=== PATIENT | female | born 1970 | race Caucasian/White ===

== ENCOUNTER → 2022-06-30 13:38 | Outpatient (BNVA) | payer MEDICAID, SELFPAY | PROVIDERS: Visit Provider Podiatrist Foot & Ankle Surgery | DX: E11.42 Type 2 diabetes mellitus with diabetic polyneuropathy (principal); M21.621 Bunionette of right foot; M21.622 Bunionette of left foot; M21.41 Flat foot [pes planus] (acquired), right foot; M21.42 Flat foot [pes planus] (acquired), left foot; Z79.4 Long term (current) use of insulin; Z79.84 Long term (current) use of oral hypoglycemic drugs | CPT/HCPCS: 99203; 99204 ==

== ENCOUNTER → 2025-05-30 07:36 | Outpatient (BNVA) | payer MEDICAID, SELFPAY | PROVIDERS: PCP Family Medicine; Visit Provider Podiatrist Foot & Ankle Surgery | DX: E11.42 Type 2 diabetes mellitus with diabetic polyneuropathy (principal); M21.621 Bunionette of right foot; M21.622 Bunionette of left foot; M21.41 Flat foot [pes planus] (acquired), right foot; M21.42 Flat foot [pes planus] (acquired), left foot; L60.0 Ingrowing nail; Z79.4 Long term (current) use of insulin | CPT/HCPCS: 99213 ==

== ENCOUNTER → 2025-06-26 08:15 | Outpatient (BNVA) | payer MEDICAID, SELFPAY | PROVIDERS: PCP Family Medicine; Referring Provider Family Medicine; Visit Provider Internal Medicine Rheumatology | DX: M33.10 Other dermatomyositis, organ involvement unspecified (principal); M19.90 Unspecified osteoarthritis, unspecified site; Z79.899 Other long term (current) drug therapy; Z71.85 Encounter for immunization safety counseling | CPT/HCPCS: 36415; 80076; 82085; 82306; 82550; 82565; 83520; 85025; 85651; 86140; 86200; 86431; 86480; 86704; 86803; 87340; 99205 ==

== ENCOUNTER → 2025-07-22 10:38 | Outpatient (BNVA) | payer MEDICAID, SELFPAY | PROVIDERS: PCP Family Medicine; Visit Provider Internal Medicine | DX: E11.9 Type 2 diabetes mellitus without complications (principal); E78.2 Mixed hyperlipidemia; E16.0 Drug-induced hypoglycemia without coma; T38.3X5A Adverse effect of insulin and oral hypoglycemic [antidiabetic] drugs, initial encounter; X58.XXXA Exposure to other specified factors, initial encounter; Z79.4 Long term (current) use of insulin | CPT/HCPCS: 99214 ==

== ENCOUNTER → 2025-07-25 08:53 | Outpatient (BNVA) | payer MEDICAID, SELFPAY | PROVIDERS: PCP Family Medicine; Visit Provider Podiatrist Foot & Ankle Surgery | DX: E11.42 Type 2 diabetes mellitus with diabetic polyneuropathy (principal); L60.3 Nail dystrophy; M21.621 Bunionette of right foot; M21.622 Bunionette of left foot; M21.41 Flat foot [pes planus] (acquired), right foot; M21.42 Flat foot [pes planus] (acquired), left foot; I10 Essential (primary) hypertension; Z79.4 Long term (current) use of insulin | CPT/HCPCS: 99213 ==

== ENCOUNTER 2025-08-04 01:37 | Inpatient (IN) | payer MEDICAID, SELFPAY ==
[2025-08-04] VITALS (9 sets, daily range): BP systolic 125–170; BP diastolic 75–95; PULSE 85–99; RESP 16–22; TEMP 35.8–37.1; O2SAT 94–96; BMI 36.7
--- OUTSIDE RECORDS SUMMARY | 2025-08-04 01:39 | XMS_ITS | Clinical Summary ---
Author Organization [facility] Address [address] Attn: Epic Prelude ADT JUSTIN URIARTE [id number] Care Team Providers Care Waterworks Operator Name Role Phone Unavailable Primary Care Provider Unavailabl e Allergies Active Allergy Reactions Criticality Noted Date Comments Aspirin Other (See Comments) 09/25/2018 patient states she has stomach bleeding with aspirin Penicillins Nausea and Vomiting,Abdominal Pain Medium 07/27/2018 Tetanus Toxoid Other (See Comments) 09/25/2018 fever Medications hydroCHLOROthia zide 25 mg tablet Take 1 tablet by MOUTH every day 30 Tablet 5 01/22/2019 Active metFORMIN (GLUCOPHAGE) 500 mg tablet Take 1 tablet by MOUTH 2 times every day 60 Tablet 5 01/22/2019 Active lovastatin (MEVACOR) 40 mg tablet Take 1 tablet by MOUTH every day with the evening meal 30 Tablet 11 01/22/2019 Active Encounters Date Type Department Care Team Description 05/28/2025 External Device Data [facility] Provider, Abstract 05/08/2025 External Device Data [facility] Provider, Abstract 05/07/2025 External Device Data [facility] Provider, Abstract from Last 3 Months Social History Tobacco Use Types Packs/Day Years Used Date Smoking Tobacco: Never Assessed Comments Unknown Sex and Gender Information Value Date Recorded Sex Assigned at Not on file 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
--- NOTE | 2025-08-04 01:53 | USCV_ITS ---
Cherie Pena Age: 55 Gender: F : 1970 Exam Date: 08/04/2025 07:16 Ordering Phys: Elaine Pierce MD Technologist: Cedrick Campos Exam Location: [facility] [place] Indication: chest pain BP: 125 / 79 HR: 80 Rhythm: Sinus Technical Quality: Adequate MEASUREMENTS (Male / Female) Normal Values 2D ECHO LV Diastolic Diameter PLAX 4.8 cm 4.2 - 5.9 / 3.9 - 5.3 cm IVS Diastolic Thickness 1.0 cm 0.6 - 1.0 / 0.6 - 0.9 cm IVS Systolic Thickness 1.6 cm LVPW Diastolic Thickness 0.9 cm 0.6 - 1.0 / 0.6 - 0.9 cm LVPW Systolic Thickness 1.5 cm LVOT Diameter 2.1 cm LV Ejection Fraction 2D Teich 84.7 % LV Ejection Fraction MOD 4C 68.8 % LV Ejection Fraction MOD 2C 63.7 % LV Ejection Fraction 2C AL 62.0 % LA Diameter 3.6 cm RA Systolic Volume 4C AL 22.3 ml RA Systolic Volume 4C MOD 21.6 ml LA Sys Volume AL 44.5 cm cubed LA Sys Volume Index AL 19.9 cm cubed/m squared Aorta at Sinotubular Diameter 2.7 cm IVC Diameter 1.7 cm M-MODE LA Ao Ratio MM 1.4 AV Cusp Separation MM 2.0 cm DOPPLER AV Peak Velocity 164.3 cm/s LVOT Peak Velocity 101.0 cm/s AV Area Cont Eq vti 2.4 cm squared AV Area Cont Eq pk 2.1 cm squared MV Peak Velocity 75.0 cm/s MV Area PHT 5.3 cm squared Mitral E to A Ratio 1.1 TR Peak Velocity 322.0 cm/s TR Peak Gradient 41.5 mmHg TR Mean Velocity 277.0 cm/s TR Mean Gradient 31.8 mmHg TR Velocity Time Integral 79.3 cm PV Peak Velocity 112.7 cm/s RV Ejection Time 0.2 s FINDINGS Left Ventricle Left ventricle is normal in size. LV systolic function is normal with EF of 60-65%. No regional wall motion abnormalities are seen. Right Ventricle Right Atrium Normal right atrial size. Left Atrium Normal left atrial size. IA Septum Grossly normal Mitral Valve Structurally normal mitral valve. Trace mitral regurgitation Aortic Valve Structurally normal aortic valve. No significant stenosis. Trace aortic regurgitation. Tricuspid Valve Insufficient TR jet to calculate RVSP Pulmonic Valve Trace pulmonic regurgitation. Pericardium Normal Aorta Normal in size IVC Appears to be normal CONCLUSIONS LV systolic function is normal with EF of 60-65% Trace mitral regurgitation Trace aortic regurgitation. Trace pulmonic regurgitation. No comparison studies are available. Davin Boss MD (Electronically Signed) Final Date: 04 August 2025 10:31 S
--- NOTE | 2025-08-04 01:54 | XRR_ITS ---
PROCEDURE INFORMATION: Exam: XR Chest Exam date and time: 08/04/2025 2:13 AM Age: 55 years old Clinical indication: Chest pressure; C/O chest pain starting sat morning early; Chest pain on deep breathing sometimes; TECHNIQUE: Imaging protocol: Radiologic exam of the chest. Views: 1 view. COMPARISON: No relevant prior studies available. FINDINGS: Lungs: Unremarkable. No consolidation. Pleural spaces: Unremarkable. No pleural effusion. No pneumothorax. Heart/Mediastinum: Unremarkable. No cardiomegaly. Bones/joints: Unremarkable. XR/XR chest 1V portable [id number] IMPRESSION: No acute findings.
--- NOTE | 2025-08-04 01:57 | PM.HP ---
Providers/Chief Complaint Admitting Physician: Elaine Pierce MD--patient just arrived from [facility] after 12 midnight, seen and evaluated Primary Care Provider: Carlos Manuel Granado MD Chief Complaint: Chest Pain History of Present Illness Cherie Pena is a 55 year old female with no past no history of coronary artery disease but does have history of diabetes type 2 on medications, presented to [facility] with chest pain that woke her up yesterday at 6 AM that is 20 hours ago. When patient arrived to [facility] emergency room it was 13 hours after she had had the episode of chest pain that woke her up enzymes were done and they were all negative for the baseline troponin and the 2-hour troponin. CTA over at the [facility] was negative for PE. Chest x-ray and EKG were unremarkable for any ischemia. Ultrasound of the gallbladder where unremarkable for any obstructive natures that may be a reason for chest pain the ED for this patient in [facility] was worried that patient had been given GI cocktails and nitro without any relief patient could not take aspirin because patient is allergic to aspirin. Patient did not receive any aspirin. Patient feel chest pressure but feel pain when she takes a deep breath. Patient had arrived of seen and evaluated patient patient does have more atypical chest pain than anything And I am really running troponin obtaining chest x-ray and EKG ordered echocardiogram. This is the weekend if everything checks out it depends on the attending physician for this patient to follow through with outpatient stress test. Unless something is concerning patient should not be sitting in the hospital for the next 48 hours to get a stress test. I will leave this for a decision by the oncoming attending for the day. Patient at this time is currently chest pain-free. Because patient did not get any aspirin I will substitute by giving Plavix at this moment. But not loading. Just 75 mg of Plavix Review of Systems Narrative: System review upon 10 organ review we are unremarkable except for cardiovascular with atypical chest pain Medications/Allergies Home Medications ?Medication ?Instructions ?Recorded ?Confirmed ?Last Taken ?Type atorvastatin 40 mg tablet ea PO 06/30/22 07/25/25 Unknown History fluoxetine 20 mg capsule ea PO 06/30/22 07/25/25 Unknown History pen needle, diabetic 31 gauge x #50 ea 06/30/22 07/25/25 Unknown History 01/06 (TechLITE Pen Needle) triamcinolone acetonide 0.1 % 1 applic topical TID 12/23/23 07/25/25 Unknown History topical cream Diabetic shoes #1 ea 09/25/24 07/25/25 Unknown Rx amitriptyline 10 mg tablet mg PO 01/24/25 07/25/25 Unknown History amlodipine 10 mg tablet mg PO 01/24/25 07/25/25 Unknown History blood-glucose sensor (Dexcom G6 #1 ea 01/24/25 07/25/25 Unknown History Sensor device) famotidine 40 mg tablet mg PO 01/24/25 07/25/25 Unknown History lisinopril 20 mg tablet mg PO 01/24/25 07/25/25 Unknown History mycophenolate mofetil 500 mg tablet PO 01/24/25 07/25/25 Unknown History Held on 06/26/25. Instructions: Doctor's Order prednisone 10 mg tablet mg PO 01/24/25 07/25/25 Unknown History dulaglutide 4.5 mg/0.5 mL 4.5 mg (0.5 mL) SUBCUT Q7D #6 mL 05/17/25 07/25/25 Unknown Rx subcutaneous pen injector (Trulicity) insulin regular hum U-500 conc 500 See Rx Instructions .Route 06/17/25 07/25/25 Unknown Rx unit/mL(3 mL) subcut pen (Humulin .COMPLEX #18 mL R U-500 (Conc) Insulin Kwikpen) folic acid 1 mg tablet 1 mg PO DAILY #90 tabs 06/26/25 07/25/25 Unknown Rx hydroxychloroquine 200 mg tablet 200 mg PO BID #60 tabs 06/26/25 07/25/25 Unknown Rx leflunomide 20 mg tablet 20 mg PO DAILY #30 tabs 06/28/25 07/25/25 Unknown Rx mupirocin 2 % topical ointment 1 applic topical BID 2 weeks #22 07/25/25 07/25/25 Unknown Rx grams Allergies Allergy/AdvReac Type Severity Reaction Status Date / Time aspirin Allergy ADR-Abdominal Verified 07/25/25 08:58 Pain NSAIDS (Non-Steroidal Allergy Unknown Verified 08/04/25 02:19 Anti-Inflamma Penicillins Allergy ADR-Diarrhe Verified 07/25/25 08:58 a strawberry Allergy ALGY-Hives Verified 08/04/25 02:19 tetanus toxoid, adsorbed Allergy ALGY-Fever Verified 08/04/25 02:19 PFSH Acute PFSH: Medical History Immunization counseling High risk medication use Inflammatory arthritis Amyopathic dermatomyositis SLE (systemic lupus erythematosus) Polyarthralgia History of hypertension Insomnia Seasonal allergies Surgical History History of hysterectomy with bilateral oophorectomy History of tubal ligation History of tonsillectomy and adenoidectomy Family History Other Cancer Diabetes Hypertension Lung cancer Lung disease Lupus (systemic lupus erythematosus) Migraines Rheumatoid arthritis Stroke Denies family history of Chronic kidney disease (CKD) Breast cancer Social History Smoking and tobacco/nicotine status: former use of tobacco/nicotine Vitals/I&O/Wt Last Vital Signs O2 Del Method Room Air 08/04/25 01:47 Physical Exam Narrative: Generally patient looks well in bed lying supine with no complaints chest pain-free HEENT normocephalic atraumatic neck neck is supple cardiovascular heart rate is regular lungs are pretty much clear abdomen soft nontender nondistended unremarkable extremities are intact no edema has good pulses neurology has no focality lab studies lab studies reviewed and noted. A&P Assessment and plan 1. Chest pain: 2. Inflammatory arthritis: 3. Hyperlipemia, mixed: 4. Diabetes type 2, uncontrolled: Plan: #1 Chest pain - Rule out MA - Character of the chest pain is mixed but more so atypical - Run-through troponin patient had 2 sets negative already from the transferring hospital - EKG and chest x-ray had been negative - Echocardiogram had been ordered follow through with the result of echocardiogram prior to discharge - If all is negative patient can safely get outpatient stress test - Patient is not on Plavix at home patient is being given Plavix here by me because patient cannot take aspirin because of aspirin allergy #2 Chronic medical illness such as inflammatory arthritis/diabetes type 2/hyperlipidemia mixed-be continued on patient home medications #3 GI and DVT prophylaxis in place PDMP PDMP Reviewed: Last Reviewed 08/04/25 02:20 by Elaine Pierce MD Attestations Medical Necessity Statement*: Patient is under observation for 23-hour stay regarding chest pains Coding Level of Care Code Acute Code for Chg Fwd Diagnoses Chest pain R07.9 Inflammatory arthritis M13.80 Hyperlipemia, mixed E78.2 Diabetes type 2, uncontrolled Time Spent (min) 60
[2025-08-04] MEDS: heparin 5,000 unit/mL INJ 1 mL 5000 UNIT SUBCUT ×3 (02:54→16:52)
[2025-08-04 03:06] LABS: Hematocrit 37.4 % (36-47); Hemoglobin 11.70 g/dL (11.27-16.99); Mean Corpuscular HGB Conc 31.3 g/dL (30-55); Mean Corpuscular Hemoglobin 26.5 pg (27-33); Mean Corpuscular Volume 84.6 fl (85-98); Nucleated Red Blood Cells % 0 %; Platelet Count 278 10^3/cmm (157-399); Red Blood Count 4.42 10^6/uL (3.85-5.65); White Blood Count 5.21 10^3/uL (3.29-11.43)
[2025-08-04 03:23] LABS: Alanine Aminotransferase 13 U/L (0-33); Albumin Level 3.9 g/dL (3.5-5.2); Alkaline Phosphatase 112 U/L (35-105); Anion Gap 14.9 (5-19); Aspartate Amino Transferase 11 U/L (0-32); Blood Urea Nitrogen 8 mg/dL (6-20); Calcium 10.3 mg/dL (8.5-10.5); Carbon Dioxide 24 mmol/L (22-29); Chloride 104 mmol/L (98-107); Creatinine Clr Calc Pharmacy 192.8172; Globulin 2.7 g/dL (1.3-4.6); Glucose 164 mg/dL (65-115); Magnesium 1.8 mg/dL (1.7-2.3); Osmolality Calculated 290 mOsm/kg (285-295); Potassium 3.9 mmol/L (3.5-5.1); Sodium 139 mmol/L (136-145); Total Protein 6.6 g/dL (6.6-8.7)
[2025-08-04 03:46] LABS: Troponin(5th) Baseline 8 ng/L (0-10)
--- NOTE | 2025-08-04 03:54 | ECG_ITS ---
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
[2025-08-04 05:50] LABS: Troponin 5 2HR 10.07 ng/L (0-10); Troponin 5 2HR Delta 2.07 ABS# (0-10)
--- NOTE | 2025-08-04 07:54 | ECG_ITS ---
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1970 Requested By: Elaine Monte Order Number: [id number] Reading MD: PHOENIX LUONG Measurements Intervals [place] Rate: 96 P: 34 [place]: 164 QRS: -8 QRSD: 97 T: 59 QT: 349 QTc: 442 Interpretive Statements SINUS RHYTHM INFERIOR MYOCARDIAL INFARCTION , OF INDETERMINATE AGE [40+ ms Q WAVE AND/OR ST/T ABNORMALITY IN II/aVF] Compared to ECG 08/04/2025 02:28:37 Ventricular premature complex(es) no longer present Myocardial infarct finding still present Electronically Signed On 08-04-2025 23:27:38 CDT by PHOENIX LUONG [email or web address] [id number]
--- NOTE | 2025-08-04 08:40 | ECG_ITS ---
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 Interpretive Statements LEXISCAN: Procedure: At the baseline, the blood pressure was 131/90 mmHg with a heart rate of 98 bpm. The electrocardiogram showed normal sinus rhythm, with normal ST and T's. The Lexiscan was infused over a period of 20 seconds. A total of 0.4 mg of Lexiscan was infused. The stress phase was continued for a total of 5 minutes. Heart rate was at the end of stress phase was 104 bpm and a blood pressure of 144/87 mmHg. The EKG at the peak infusion revealed normal sinus rhythm, occasional PVCs with no significant ST-T wave changes. Sestamibi was injected 20 seconds after the Lexiscan infusion. Blood pressure at the end of recovery phase was 115/87 mmHg with a heart rate of 104 bpm. Conclusion: 1. Normal EKG response to Lexiscan infusion 2. No Lexiscan induced chest pain or cardiac arrhythmia. 3. Normal blood pressure and heart rate response. 4. Sestamibi/sestamibi perfusion scan pending; see separate report. Electronically Signed On 08-10-2025 19:59:55 CDT by Davin Boss M.D. [id number]
[2025-08-04 09:05] LABS: Troponin 5 6HR 7.31 ng/L (0-10)
[2025-08-04 09:06] LABS: Troponin 5 6HR Delta -0.69 ng/L (0-12)
--- NOTE | 2025-08-04 15:20 | P.PN_ITS ---
Subjective 2 Subjective: She was transferred from [facility] for evaluation of chest pain. She has substernal discomfort when she takes a deep breath. She denies any dyspnea. She CT chest at OSH was negative for PE or pneumonia. Her initial troponin was normal and trended up by 2. Medications: Reviewed: Yes Vitals/I&O/Wt Last Vital Signs Temp 97.9 F 08/04/25 12:00 Pulse 93 08/04/25 12:00 Resp 22 H 08/04/25 12:00 BP 131/78 08/04/25 12:00 Pulse Ox 96 08/04/25 12:00 O2 Del Method Room Air 08/04/25 04:00 08/04/25 08/04/25 08/04/25 06:59 14:59 22:59 Intake Total 1695 / 1695 Balance 1695 / 1695 Weight last 48 hrs Weight 103.2 kg Weight 103.2 kg Physical Exam 2 Narrative: GEN: Alert, no acute distress HEENT: Normocephalic, atraumatic, PERRLA Neck: Supple Respiratory: No respiratory distress, clear to auscultation bilaterally. Abdomen: Soft, nontender, nondistended, normoactive bowel sounds Neurologic: Alert, oriented x 3, no focal deficits Extremity: Warm, no edema Skin: No rash or lesion Data 08/04/25 02:44 08/04/25 02:44 A&P Assessment and plan 1. Chest pain: Echo and stress test ordered Nitroglycerin as needed She is allergic to aspirin so is on Plavix Telemetry monitoring 2. Diabetes type 2, uncontrolled: She sees endocrinology She takes U-500 100 mg 3 times daily with meals Started her on lispro 100 mg 3 times daily with meals and high-dose sliding scale Monitor glucose and adjust as needed 3. Hypertension: Lisinopril 4. Hyperlipemia, mixed: Atorvastatin 5. SLE (systemic lupus erythematosus): She is on hydroxychloroquine 6. Inflammatory arthritis: Also on leflunomide, methotrexate Plan: VTE prophylaxis: Heparin SQ Full code Protonix PDMP PDMP Reviewed: Not Reviewed Attestations 2 Medical Necessity Statement*: She is continue hospitalization for telemetry monitoring and stress test Coding Level of Care Code Acute Code for [facility] Diagnoses Chest pain R07.9 Diabetes type 2, uncontrolled Hypertension I10 Hyperlipemia, mixed E78.2 SLE (systemic lupus erythematosus) M32.9 Inflammatory arthritis M13.80
[2025-08-04 16:10] LABS: Estmated Average Glucose 163; Hemoglobin A1C 7.3 % (4.0-6.0)
--- NOTE | 2025-08-04 16:45 | PC.NURSE ---
Patient refuses to have her blood sugar checked with Accucheck. Patient has dexcom she insists on using. BS at this time is 108.
--- NOTE | 2025-08-04 22:37 | PC.NURSE ---
BG at 156 using the patient dexcom at approx 2030, patient still refusing to have staff check using the accucheck machine.
[2025-08-05] VITALS (8 sets, daily range): BP systolic 102–157; BP diastolic 65–95; PULSE 66–101; RESP 17–24; TEMP 35.9–36.7; O2SAT 93–97
[2025-08-05] MEDS: heparin 5,000 unit/mL INJ 1 mL 5000 UNIT SUBCUT ×3 (02:27→16:38)
[2025-08-05 05:56] LABS: Anion Gap 15.1 (5-19); Blood Urea Nitrogen 9 mg/dL (6-20); Calcium 9.5 mg/dL (8.5-10.5); Carbon Dioxide 23 mmol/L (22-29); Chloride 108 mmol/L (98-107); Glucose 180 mg/dL (65-115); Osmolality Calculated 297 mOsm/kg (285-295); Potassium 4.1 mmol/L (3.5-5.1); Sodium 142 mmol/L (136-145)
--- NOTE | 2025-08-05 06:00 | PC.NURSE ---
dexcom reading of 188 this AM
[2025-08-05 06:01] LABS: Creatinine Clr Calc Pharmacy 193.7203
[2025-08-05 06:06] LABS: Cholesterol 119 mg/dL (0-200); HDL Cholesterol 29 mg/dL (60-100); Triglycerides 223 mg/dL (0-150)
--- NOTE | 2025-08-05 07:14 | PC.NURSE ---
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 No distress observed.
--- NOTE | 2025-08-05 08:40 | NMCV_ITS ---
NM marzena perf SPECT r/s* [id number] Cherie Pena Age: 55 Gender: F : 1970 Exam Date: 08/05/2025 06:57 Ordering Phys: Alice Valdovinos MD Technologist: MEDINA Cobos Exam Location: [facility] Indications: cp STRESS TEST Please see separate stress test report in [facility] for full findings IMAGE PROTOCOL Rest/Stress 1 Lexiscan Day Radiopharmaceutical Dose (mCi) Administration Site Administered by Rest: Tc-99m 10.7 IV Pam Jean, FISHERIES INSPECTOR Sestamibi Stress:Tc-99m 33 IV Pam Lightgle, FISHERIES INSPECTOR Sestamibi Rest: 05-Aug-2025 60 Discovery 630 Stress: 05-Aug-2025 30 Discovery 630 0.4mg Lexiscan. Images obtained in supine and prone position. SPECT RESULTS Technical Quality: Good Raw Data Analysis: Normal Image Corrections: No attenuation or motion correction applied Summed Stress Score: 4 Summed Rest Score: 5 Summed Difference Score: 0 PERFUSION FINDINGS Small to medium sized area of fixed perfusion defect noted in the inferolateral wall. This improves on prone imaging. Attenuation can not be ruled out. FUNCTIONAL RESULTS (calculated via Gated SPECT) Stress Image LV EF (%): 75 Stress EDV (mL):89 TID: 0.92 Stress ESV (mL):22 FUNCTIONAL FINDINGS: There is normal left ventricular systolic function. IMPRESSIONS 1. Small to medium sized area of prior infarct in left circumflex artery territory. Attenuation artifact can not be ruled out. No evidence of ischemia 2. LV systolic function is normal Davin Boss MD (Electronically Signed) Final Date: 05 August 2025 11:46 S
[2025-08-05 10:50] LABS: Iron 28 ug/dL (37-145); Thyroid Stimulating Hormone 0.62 uIU/mL (0.27-4.20); Total Iron Binding Capacity 217 mcg/dl; Unsaturated Iron Binding 189 ug/dL (112-347); Vitamin B12 924 pg/mL (232-1245)
--- NOTE | 2025-08-05 13:18 | P.CONIM_ITS ---
<Statement entered by Davin Boss M.D - 08/08/25 09:27> Patient was cared for in conjunction with an advanced practice practitioner. I reviewed the chart and all pertinent data including imaging, telemetry, and laboratory results. I discussed the patient in detail with the advanced practice practitioner. Please see their note for agreed upon plan of care and results for the patient. Patient has atypical chest pain on my evaluation. Stress test not showing significant ischemia. Echo shows normal LV systolic function and no significant troponin elevation. Chest pain likely secondary to costochondritis. We will continue medical therapy Thank you for involving us with care of this patient. Please call with questions. Providers/Reason For Consult 2 Consulting Physician/Specialty*: Dr Boss, interventional cardiology Reason for Consult*: chest pain Requesting Physician: Carlos Cordova MD Attending Physician: Carlos Cordova MD Primary Care Provider: Carlos Manuel Granado MD History of Present Illness History of Present Illness Cherie Pena is a 55 year old female with past medical history of diabetes who presented to the emergency room in [facility] with chest pain. Per review of medical records troponin series there was negative, CTA of the chest ruled out PE. She was brought to [facility] for further evaluation. She states no previous cardiac workup, has never had chest pain before this episode on Tuesday. The pain woke her up from sleep at 0600, initially was rated 5/10, but continued increasing in intensity until it was about 9/10, which is when she went to the hospital. Character of the pain is described as pressure like someone sitting on her chest initially, but after several hours also added sharp pain in the left breast like someone was trying to cut off my boob . She also notes vomiting when the pain became more intense. She had right arm numbness and difficulty moving the arm, which has since resolved. Significant fatigue present that day but is improving. She is unable to lay flat to breathe, but has not had any symptoms of volume overload. No previous history of COPD, but notes bronchitis. Troponin series here: 8->10->7. Echocardiogram revealed LVEF 60-65%, no regional wall motion abnormalites. 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 EKG shows Q waves in the inferior leads. She has not had any chest pain today. Review of Systems 2 Const: Denies: fever(s), chills, change in weight, fatigue or diaphoresis Eyes: Denies: change in vision ENMT: Denies: epistaxis Card: Denies: chest pain, palpitations, irregular heart rhythm, edema, syncope, pre-syncope, dyspnea on exertion, orthopnea or leg pain with exertion Resp: Denies: dyspnea, productive cough or wheezing GI: Denies: nausea, vomiting, hematemesis, hematochezia or melena : Denies: hematuria Musc: Denies: extremity swelling Viraj/Lymph: Denies: easy bruising or easy bleeding Medications/Allergies Home Medications ?Medication ?Instructions ?Recorded ?Confirmed ?Last Taken ?Type atorvastatin 40 mg tablet 40 ea PO BEDTIME 06/30/2208/03/25 History fluoxetine 20 mg capsule 20 ea PO DAILY 06/30/2207/2408/03/25 History pen needle, diabetic 31 gauge x #50 ea 06/30/22 Unknown History 01/06 (TechLITE Pen Needle) Diabetic shoes #1 ea 09/25/24 08/04/25 Unkn own Rx amitriptyline 10 mg tablet 10 - 20 mg PO BEDTIME 01/2408/04/25 08/03/25 History 10 mg amlodipine 10 mg tablet 10 mg PO DAILY 01/24/2507/2408/03/25 History blood-glucose sensor (Dexcom G6 #1 ea 01/24/25 5 Unknown History Sensor device) famotidine 40 mg tablet 40 mg PO BEDTIME 01/24/2508/03/25 History lisinopril 20 mg tablet 20 mg PO DAILY 01/24/2507/2408/03/25 History dulaglutide 4.5 mg/0.5 mL 4.5 mg (0.5 mL) SUBCUT Q7D # 6 mL 05/17/25 08/04/25 07/22/25 08:00 Rx subcutaneous pen injector (Trulicity) insulin regular hum U-500 conc 500 See Rx Instructions .Route 06/17/25 08/04/25 08/04/25 Rx unit/mL(3 mL) subcut pen (Humulin .COMPLEX #18 mL R U-500 (Conc) Insulin Kwikpen) folic acid 1 mg tablet 1 mg PO DAILY #90 tabs 06/2608/04/25 08/03/25 Rx hydroxychloroquine 200 mg tablet 200 mg PO BID #60 tab s 06/26/25 08/04/25 08/03/25 Rx leflunomide 20 mg tablet 20 mg PO DAILY #30 tabs 03/1708/04/25 08/03/25 Rx methotrexate sodium 25 mg/mL See Rx Instructions .Rout e .COMPLEX 08/04/25 08/04/25 07/22/25 History injection solution Allergies Allergy/AdvReac Type Severity Reaction Status Date / Time aspirin Allergy ADR-Abdominal Verified 07/25/25 08:58 Pain NSAIDS (Non-Steroidal Allergy Unknown Verified 08/04/25 02:19 Anti-Inflamma Penicillins Allergy ADR-Diarrhe Verified 07/25/25 08:58 a strawberry Allergy ALGY-Hives Verified 08/04/25 02:19 tetanus toxoid, adsorbed Allergy ALGY-Fever Verified 08/04/25 02:19 Current Medications Generic Name Dose Route Start Last Admin Trade Name Tyrelq PRN Reason Stop Dose Admin Amlodipine Besylate 10 mg 08/05/25 05:00 08/05/25 04:41 Amlodipine 10 Mg Tablet PO 10 mg DAILY MANA Administration Atorvastatin Calcium 40 mg 08/04/25 21:00 08/04/25 20:47 Atorvastatin 40 Mg Tablet PO 40 mg BEDTIME MANA Administration Clopidogrel Bisulfate 75 mg 08/04/25 05:00 08/05/25 04:41 Clopidogrel 75 Mg Tablet PO 75 mg DAILY MANA Administration Docusate Sodium 100 mg 08/04/25 05:00 08/05/25 04:41 Docusate Sodium 100 Mg Capsule PO Not Given BID MANA Famotidine 40 mg 08/04/25 21:00 08/04/25 20:47 Famotidine 20 Mg Tablet PO 40 mg BEDTIME MANA Administration Fluoxetine HCl 20 mg 08/05/25 05:00 08/05/25 04:41 Fluoxetine 20 Mg Capsule PO 20 mg DAILY MANA Administration Folic Acid 1 mg 08/05/25 05:00 08/05/25 04:41 Folic Acid 1 Mg Tablet PO 1 mg DAILY MANA Administration Heparin Sodium (Porcine) 5,000 unit 08/04/25 02:00 08/05/25 11:20 Heparin 5,000 Unit/Ml Inj 1 Ml SUBCUT 5,000 unit Q8H MANA Administration Hydroxychloroquine Sulfate 200 mg 08/04/25 17:00 08/05/25 04:41 Hydroxychloroquine 200 Mg Tablet PO 200 mg BID MANA Administration Insulin Human Lispro 0 unit 08/04/25 18:00 08/05/25 07:17 Insulin Lispro 100 Unit/1 Ml SUBCUT Not Given WM&BEDTIME MANA Protocol Insulin Human Lispro 100 unit 08/04/25 17:00 08/05/25 11:25 Insulin Lispro 100 Unit/1 Ml SUBCUT Not Given TIDAC [facility] Lisinopril 20 mg 08/05/25 05:00 08/05/25 04:41 Lisinopril 20 Mg Tablet PO 20 mg DAILY MANA Administration Pantoprazole Sodium 40 mg 08/04/25 05:00 08/05/25 04:[address] 40 Mg Tablet PO 40 mg DAILY MANA Administration Senna 17.2 mg 08/04/25 21:00 08/04/25 20:47 Sennosides 8.6 Mg Tablet PO Not Given BEDTIME MANA PFSH Acute 2 PFSH: Medical History Immunization counseling High risk medication use Inflammatory arthritis Amyopathic dermatomyositis SLE (systemic lupus erythematosus) Polyarthralgia History of hypertension Insomnia Seasonal allergies Surgical History History of hysterectomy with bilateral oophorectomy History of tubal ligation History of tonsillectomy and adenoidectomy Family History Other Cancer Diabetes Hypertension Lung cancer Lung disease Lupus (systemic lupus erythematosus) Migraines Rheumatoid arthritis Stroke Denies family history of Chronic kidney disease (CKD) Breast cancer Social History Smoking and tobacco/nicotine status: former use of tobacco/nicotine Vitals/I&O/Wt Last Vital Signs Temp 98.0 F 08/05/25 11:47 Pulse 88 08/05/25 11:47 Resp 18 08/05/25 11:47 BP 139/84 08/05/25 11:47 Pulse Ox 96 08/05/25 11:47 O2 Del Method Room Air 08/05/25 11:47 08/04/25 08/05/25 08/05/25 22:59 06:59 14:59 Intake Total 360 / 3055 1000 / 3055 1480 / 1480 Balance 360 / 3055 1000 / 3055 1480 / 1480 Weight last 48 hrs Weight 229 lb 8.019 oz Weight 227 lb 8.273 oz Weight 227 lb 8.273 oz Physical Exam 2 Const: COMMON NORMALS: no acute distress and patient oriented x3 GENERAL APPEARANCE: cooperative and comfortable ORIENTATION/CONSCIOUSNESS: Yes awake, Yes oriented to person, Yes oriented to place and Yes oriented to time Chest: COMMONS NORMALS: normal inspection of the chest and normal palpation of entire chest wall CHEST: Yes Symmetrical chest wall rise Resp: COMMON NORMALS: normal respiratory effort, No retractions, No use of accessory muscles and clear to auscultation bilaterally EFFORT & INSPECTION: Yes symmetric chest movement AUSCULTATION: clear to auscultation bilaterally Cardio: COMMON NORMALS: regular rate, regular rhythm, S1 normal heart sound present, S2 normal heart sound present, No gallops present (Cardio), No clicks present (Cardio), No murmurs present (Cardio) and No rub (Cardio) RATE: r egular rate RHYTHM: regular rhythm HEART SOUNDS: S1 normal heart sound present and S2 normal heart sound present PERIPHERAL PULSES: radial pulses present Extremity: COMMON NORMALS: no pedal edema Neuro: COMMON NORMALS: patient oriented x3 and moves all extremities S ENSORIUM/ORIENTATION: Yes oriented to person, Yes oriented to place and Yes oriented to time Data 08/04/25 02:44 08/05/25 04:52 A&P Assessment and plan 1. Chest pain: 2. Hypertension: 3. Diabetes type 2, uncontrolled: Plan: She has some features of typical chest pain but no elevation in cardiac markers. She will be evaluated later this evening by Dr Boss, since she is chest pain free now, he will discuss further plan with her. PDMP PDMP Reviewed: Not Reviewed Coding Level of Care Code Acute Code for Chg Fwd Diagnoses Chest pain R07.9 Hypertension I10 Diabetes type 2, uncontrolled
--- NOTE | 2025-08-05 13:59 | P.PN_ITS ---
Subjective 2 Subjective: Hospital course, labs appreciated. Patient comfortably in bed. Denies any further chest pain. States chest pain is only happening when she is taking a deep breath. Mostly is retrosternal. Denies any nausea, vomiting, headache or dyspnea on exertion. Medications: Reviewed: Yes Vitals/I&O/Wt Last Vital Signs Temp 98.0 F 08/05/25 11:47 Pulse 88 08/05/25 11:47 Resp 18 08/05/25 11:47 BP 139/84 08/05/25 11:47 Pulse Ox 96 08/05/25 11:47 O2 Del Method Room Air 08/05/25 11:47 08/04/25 08/05/25 08/05/25 22:59 06:59 14:59 Intake Total / 2054 1000 / 3055 1480 / 1480 Balance 360 / 2054 1000 / 3055 1480 / 1480 Weight last 48 hrs Weight 104.1 kg Weight 103.2 kg Weight 103.2 kg Physical Exam 2 Narrative: GEN: Alert, no acute distress HEENT: Normocephalic, atraumatic, PERRLA Neck: Supple Respiratory: No respiratory distress, clear to auscultation bilaterally. Abdomen: Soft, nontender, nondistended, normoactive bowel sounds Neurologic: Alert, oriented x 3, no focal deficits Extremity: Warm, no edema Skin: No rash or lesion Data 08/04/25 02:44 08/05/25 04:52 A&P Assessment and plan 1. Chest pain: Echo and stress test ordered Nitroglycerin as needed She is allergic to aspirin so is on Plavix Telemetry monitoring 2. Diabetes type 2, uncontrolled: She sees endocrinology She takes U-500 100 mg 3 times daily with meals Started her on lispro 100 mg 3 times daily with meals and high-dose sliding scale Monitor glucose and adjust as needed 3. Hypertension: Lisinopril 4. Hyperlipemia, mixed: Atorvastatin 5. SLE (systemic lupus erythematosus): She is on hydroxychloroquine 6. Inflammatory arthritis: Also on leflunomide, methotrexate Plan: Plan for today: Appreciate Lexiscan stress test result. Possible old infarct. Attenuation defect versus possible ischemia. Will consult cardiology for further recommendations. For now continue with Plavix, statin. Goal blood pressure less than 140/90 mmHg. Continue with home amlodipine, lisinopril. Will monitor heart rate. Can add low-dose beta-alina. Check A1c, lipid panel. Carb consistent cardiac diet Protonix for PUD prophylaxis Heparin for DVT prophylaxis PDMP PDMP Reviewed: Not Reviewed Attestations 2 Medical Necessity Statement*: Requires further hospitalization further evaluation and management of chest pain while CAD/ACS is ruled out Diagnoses Chest pain R07.9 Diabetes type 2, uncontrolled Hypertension I10 Hyperlipemia, mixed E78.2 SLE (systemic lupus erythematosus) M32.9 Inflammatory arthritis M13.80
[2025-08-06] VITALS: BP 139/79; PULSE 90; RESP 17; O2SAT 94
[2025-08-06] MEDS: heparin 5,000 unit/mL INJ 1 mL 5000 UNIT SUBCUT (02:18)
[2025-08-06 04:00] VITALS: BP 127/84; PULSE 88; RESP 16; TEMP 36.9; O2SAT 93
[2025-08-06 04:28] LABS: Hematocrit 37.4 % (36-47); Hemoglobin 11.40 g/dL (11.27-16.99); Mean Corpuscular HGB Conc 30.5 g/dL (30-55); Mean Corpuscular Hemoglobin 26.4 pg (27-33); Mean Corpuscular Volume 86.6 fl (85-98); Nucleated Red Blood Cells % 0 %; Platelet Count 251 10^3/cmm (157-399); Red Blood Count 4.32 10^6/uL (3.85-5.65); White Blood Count 4.70 10^3/uL (3.29-11.43)
[2025-08-06 04:57] LABS: Alanine Aminotransferase 14 U/L (0-33); Albumin Level 3.5 g/dL (3.5-5.2); Alkaline Phosphatase 96 U/L (35-105); Anion Gap 14.6 (5-19); Aspartate Amino Transferase 15 U/L (0-32); Blood Urea Nitrogen 8 mg/dL (6-20); Calcium 10.0 mg/dL (8.5-10.5); Carbon Dioxide 24 mmol/L (22-29); Chloride 106 mmol/L (98-107); Creatinine Clr Calc Pharmacy 193.7203; Globulin 3.3 g/dL (1.3-4.6); Glucose 94 mg/dL (65-115); Osmolality Calculated 290 mOsm/kg (285-295); Potassium 3.6 mmol/L (3.5-5.1); Sodium 141 mmol/L (136-145); Total Protein 6.8 g/dL (6.6-8.7)
[2025-08-06 06:00] VITALS: PULSE 81
[2025-08-06 08:00] VITALS: BP 135/88; PULSE 96; RESP 22; TEMP 36.9; O2SAT 97
--- NOTE | 2025-08-06 08:39 | PM.DCS ---
Discharge Providers Date of Admission: 08/04/25 01:37 Date of Discharge: August 06, 2025 Attending Provider at Admission: Elaine Pierce MD Attending Provider at Discharge: Carlos Cordova MD Primary Care Provider: Carlos Manuel Granado MD Diagnoses at Discharge Discharge Diagnosis 1. Chest pain: 2. Diabetes type 2, uncontrolled: 3. Hypertension: 4. Hyperlipemia, mixed: 5. SLE (systemic lupus erythematosus): 6. Inflammatory arthritis: Reason for Visit Reason for Visit: Chest Pain Brief History: Per HPI: Cherie Pena is a 55 year old female with no past no history of coronary artery disease but does have history of diabetes type 2 on medications, presented to [facility] with chest pain that woke her up yesterday at 6 AM that is 20 hours ago. When patient arrived to [facility] emergency room it was 13 hours after she had had the episode of chest pain that woke her up enzymes were done and they were all negative for the baseline troponin and the 2-hour troponin. CTA over at the [facility] was negative for PE. Chest x-ray and EKG were unremarkable for any ischemia. Ultrasound of the gallbladder where unremarkable for any obstructive natures that may be a reason for chest pain the ED for this patient in [facility] was worried that patient had been given GI cocktails and nitro without any relief patient could not take aspirin because patient is allergic to aspirin. Patient did not receive any aspirin. Patient feel chest pressure but feel pain when she takes a deep breath. Patient had arrived of seen and evaluated patient patient does have more atypical chest pain than anything And I am really running troponin obtaining chest x-ray and EKG ordered echocardiogram. This is the weekend if everything checks out it depends on the attending physician for this patient to follow through with outpatient stress test. Unless something is concerning patient should not be sitting in the hospital for the next 48 hours to get a stress test. I will leave this for a decision by the oncoming attending for the day. Patient at this time is currently chest pain-free. Because patient did not get any aspirin I will substitute by giving Plavix at this moment. But not loading. Just 75 mg of Plavix Hospital Course Hospital Course Patient was admitted to the hospital further evaluation and management of chest pain. She underwent cardiac stress test which revealed a small to medium sized prior infarct in LCx territory with no ischemia. Echocardiogram showed normal EF without regional wall motion abnormality. She was seen by cardiology team who recommended medical treatment. She has been discharged to hemodynamically stable condition with oral Plavix daily. Patient is allergic to aspirin hence Plavix was chosen. Physical Exam Narrative: GEN: Alert, no acute distress HEENT: Normocephalic, atraumatic, PERRLA Neck: Supple Respiratory: No respiratory distress, clear to auscultation bilaterally. Abdomen: Soft, nontender, nondistended, normoactive bowel sounds Neurologic: Alert, oriented x 3, no focal deficits Extremity: Warm, no edema Skin: No rash or lesion Discharge Data Studies Completed and Pending Completed Studies During Hospitalization Category Date Time Status XR chest 1V portable [id number] Routine Exams 08/04/25 01:54 Completed NM marzena perf SPECT r/s* [id number] Routine Nuc Med 08/05/25 08:40 Completed CV. echo complete* [id number] Routine Ultrasound 08/04/25 01:53 Completed Pending at discharge Category Date Time Status Cardiac Stress Test MIBI [Sestamibi Stress Test Request Exams 08/04/25 08:40 Ordered ] Routine Radiology Impressions Chest X-Ray 08/04/25 01:54 IMPRESSION: No acute findings. Lexiscan stress test: PERFUSION FINDINGS Small to medium sized area of fixed perfusion defect noted in the inferolateral wall. This improves on prone imaging. Attenuation can not be ruled out. FUNCTIONAL RESULTS (calculated via Gated SPECT) Stress Image LV EF (%): 75 Stress EDV (mL):89 TID: 0.92 Stress ESV (mL):22 FUNCTIONAL FINDINGS: There is normal left ventricular systolic function. IMPRESSIONS 1. Small to medium sized area of prior infarct in left circumflex artery territory. Attenuation artifact can not be ruled out. No evidence of ischemia 2. LV systolic function is normal Davin Boss MD (Electronically Signed) Final Date: 05 August 2025 Echocardiogram: CONCLUSIONS LV systolic function is normal with EF of 60-65% Trace mitral regurgitation Trace aortic regurgitation. Trace pulmonic regurgitation. No comparison studies are available. Davin Boss MD (Electronically Signed) Final Date: 04 August 2025 10:31 Laboratory Results WBC 4.70 10^3/uL (3.29-11.43) 08/06/25 03:59 RBC 4.32 10^6/uL (3.85-5.65) 08/06/25 03:59 Hgb 11.40 g/dL (11.27-16.99) 08/06/25 03:59 Hct 37.4 % (36-47) 08/06/25 03:59 MCV 86.6 fl (85-98) 08/06/25 03:59 MCH 26.4 pg (27-33) L 08/06/25 03:59 MCHC 30.5 g/dL (30-55) 08/06/25 03:59 RDW 14.7 % (12.1-15.1) 08/06/25 03:59 Plt Count 251 10^3/cmm (157-399) 08/06/25 03:59 MPV 9.9 fL (7.4-10.4) 08/06/25 03:59 Neut % (Auto) 67.6 % 08/06/25 03:59 Lymph % (Auto) 14.7 % 08/06/25 03:59 Holmes % (Auto) 9.6 % 08/06/25 03:59 Eos % (Auto) 6.8 % 08/06/25 03:59 Baso % (Auto) 1.1 % 08/06/25 03:59 Neut # (Auto) 3.18 10^3/uL (1.8-7.7) 08/06/25 03:59 Lymph # (Auto) 0.7 10^3/uL (0.8-4.8) L 08/06/25 03:59 Holmes # (Auto) 0.5 10^3/uL (0.2-0.9) 08/06/25 03:59 Eos # (Auto) 0.3 10^3/uL (0.0-0.8) 08/06/25 03:59 Baso # (Auto) 0.1 10^3/uL (0.0-0.1) 08/06/25 03:59 Nucleated RBC % (auto) 0 % 08/06/25 03:59 Nucleated RBCs # 0.0 /100WBC 08/06/25 03:59 Sodium 141 mmol/L (136-145) 08/06/25 03:59 Potassium 3.6 mmol/L (3.5-5.1) 08/06/25 03:59 Chloride 106 mmol/L (98-107) 08/06/25 03:59 Carbon Dioxide 24 mmol/L (22-29) 08/06/25 03:59 Anion Gap 14.6 (5-19) 08/06/25 03:59 BUN 8 mg/dL (6-20) 08/06/25 03:59 Creatinine 0.4 mg/dL (0.5-0.9) L 08/06/25 03:59 GFR Calculation 165.7 mL/min (90-130) H 08/06/25 03:59 Glucose 94 mg/dL (65-115) 08/06/25 03:59 Estimat Average Glucose 163 08/04/25 02:44 Hemoglobin A1c 7.3 % (4.0-6.0) H 08/04/25 02:44 Calculated Osmolality 290 mOsm/kg (285-295) 08/06/25 03:59 Calcium 10.0 mg/dL (8.5-10.5) 08/06/25 03:59 Phosphorus 2.8 mg/dL (2.5-4.5) 08/04/25 02:44 Magnesium 1.8 mg/dL (1.7-2.3) 08/04/25 02:44 Iron 28 ug/dL (37-145) L 08/05/25 04:52 TIBC 217 mcg/dl 08/05/25 04:52 % Saturation 12.9 % (20-50) L 08/05/25 04:52 Unsat Iron Binding 189 ug/dL (112-347) 08/05/25 04:52 Total Bilirubin 0.3 mg/dL (0.15-1.2) 08/06/25 03:59 AST 15 U/L (0-32) 08/06/25 03:59 ALT 14 U/L (0-33) 08/06/25 03:59 Alkaline Phosphatase 96 U/L (35-105) 08/06/25 03:59 Troponin T Baseline 8 ng/L (0-10) 08/04/25 02:44 Troponin T 120 Minute 10.07 ng/L (0-10) H 08/04/25 04:41 Delta Troponin T 2.07 ABS# (0-10) 08/04/25 04:41 Troponin T Hi Sens 6Hr 7.31 ng/L (0-10) 08/04/25 08:34 Troponin T Hi Sens 6Hr Delta -0.69 ng/L (0-12) L 08/04/25 08:34 Total Protein 6.8 g/dL (6.6-8.7) 08/06/25 03:59 Albumin 3.5 g/dL (3.5-5.2) 08/06/25 03:59 Globulin 3.3 g/dL (1.3-4.6) 08/06/25 03:59 Triglycerides 223 mg/dL (0-150) H 08/05/25 04:52 Cholesterol 119 mg/dL (0-200) 08/05/25 04:52 LDL Cholesterol, Calc 45 mg/dL (50-129) L 08/05/25 04:52 HDL Cholesterol 29 mg/dL (60-100) L 08/05/25 04:52 LDL/HDL Ratio 1.55 RATIO (0.00-3.22) 08/05/25 04:52 Cholesterol/HDL Ratio 4.10 mg/dL (0.0-4.40) 08/05/25 04:52 Vitamin B12 924 pg/mL (232-1245) 08/05/25 04:52 TSH 0.62 uIU/mL (0.27-4.20) 08/05/25 04:52 Vitals Last Vital Signs Temp 98.4 F 08/06/25 08:00 Pulse 96 08/06/25 08:00 Resp 22 H 08/06/25 08:00 BP 135/88 08/06/25 08:00 Pulse Ox 97 08/06/25 08:00 O2 Del Method Room Air 08/06/25 00:00 Discharge Plan Discharge Patient Disposition: Home Condition: Stable Prescriptions: New clopidogrel 75 mg Tablet 75 mg PO DAILY Qty: 30 0RF Continued (DME) Diabetic shoes See Rx Instructions .ROUTE .MEDSUPPLY Qty: 1 0RF Rx Instructions: With 3 pairs of inserts to the shoe guys (DME) Dexcom G6 Sensor Device See Rx Instructions .ROUTE .MEDSUPPLY Qty: 1 Rx Instructions: As directed amitriptyline 10 mg tablet 10 - 20 mg PO BEDTIME amlodipine 10 mg tablet 10 mg PO DAILY famotidine 40 mg tablet 40 mg PO BEDTIME lisinopril 20 mg tablet 20 mg PO DAILY (DME) pen needle, diabetic [TechLITE Pen Needle] 31 gauge x 3/16 needle See Rx Instructions .ROUTE .MEDSUPPLY Qty: 50 Rx Instructions: As directed fluoxetine 20 mg capsule 20 ea PO DAILY atorvastatin 40 mg tablet 40 ea PO BEDTIME hydroxychloroquine 200 mg tablet 200 mg PO BID Qty: 60 3RF folic acid 1 mg tablet 1 mg PO DAILY Qty: 90 3RF Trulicity 4.5 mg/0.5 mL pen injector 4.5 mg SUBCUT Q7D Qty: 6 1RF Humulin R U-500 (Conc) Kwikpen 500 unit/mL (3 mL) insulin pen See Rx Instructions .ROUTE .COMPLEX Qty: 18 1RF Dose Instruction: INJECT 150 UNITS SUBCUTANEOUSLY 3 TIMES DAILY. START AT 130 UNITS BEFORE MEALS Rx Instructions: INJECT 150 UNITS SUBCUTANEOUSLY 3 TIMES DAILY. START AT 130 UNITS BEFORE MEALS leflunomide 20 mg tablet 20 mg PO DAILY Qty: 30 3RF methotrexate sodium 25 mg/mL solution See Rx Instructions .ROUTE .COMPLEX Rx Instructions: 25 mg subcutaneously once very 7 days Discharge Order = DC NOW: Discharge Order (Routine); Ordered 08/06/25 Ordered By: Carlos Cordova Referrals: Carlos Manuel Granado MD [Primary Care Provider, [facility]] - 08/12/25 11:20 am Discharge Diet: Usual diet, Cardiac and Diabetic Discharge Activity: Resume usual activity and Increase activity as tolerated Patient Instructions: Type 2 Diabetes, Clopidogrel (By mouth) (Plavix), Hypertension (DC), Hyperlipidemia (DC), Chest Pain Stoplight, Opioid Safety, Patient Portal & Lynsey Instructions Discharge Attestations Time Spent in Discharge Care*: greater than 30 min Quality Metrics Clinical Quality Measures [ No reported AMI, CVA or VTE this stay] Coding Level of Care Code Acute Code for Chg Fwd Diagnoses Chest pain R07.9 Diabetes type 2, uncontrolled Hypertension I10 Hyperlipemia, mixed E78.2 SLE (systemic lupus erythematosus) M32.9 Inflammatory arthritis M19.90
--- NOTE | 2025-08-06 09:37 | P.PN_ITS ---
<Statement entered by Luis Antonio Shin 08/10/25 14:00> Patient was cared for in conjunction with an advanced practice practitioner.? I reviewed the chart and all pertinent data including imaging, telemetry, and laboratory results.? I discussed the patient in detail with the advanced practice practitioner.? Please see their note for progress note, testing results and agreed upon plan of care for the patient. Subjective 2 Subjective: Chest pain has not recurred, agree with discharge home. Vitals/I&O/Wt Last Vital Signs Temp 98.4 F 08/06/25 08:00 Pulse 96 08/06/25 08:00 Resp 22 H 08/06/25 08:00 BP 135/88 08/06/25 08:00 Pulse Ox 97 08/06/25 08:00 O2 Del Method Room Air 08/06/25 00:00 08/05/25 08/06/25 08/06/25 22:59 06:59 14:59 Intake Total 960 / 2920 480 / 2920 480 / 480 Balance 960 / 2920 480 / 2920 480 / 480 Weight last 48 hrs Weight 227 lb 14.4 oz Weight 229 lb 8.019 oz Physical Exam 2 Const: COMMON NORMALS: no acute distress and patient oriented x3 GENERAL APPEARANCE: cooperative and comfortable ORIENTATION/CONSCIOUSNESS: Yes awake, Yes oriented to person, Yes oriented to place and Yes oriented to time Chest: COMMONS NORMALS: normal inspection of the chest and normal palpation of entire chest wall CHEST: Yes Symmetrical chest wall rise Resp: COMMON NORMALS: normal respiratory effort, No retractions, No use of accessory muscles and clear to auscultation bilaterally EFFORT & INSPECTION: Yes symmetric chest movement AUSCULTATION: clear to auscultation bilaterally Cardio: COMMON NORMALS: regular rate, regular rhythm, S1 normal heart sound present, S2 normal heart sound present, No gallops present (Cardio), No clicks present (Cardio), No murmurs present (Cardio) and No rub (Cardio) RATE: r egular rate RHYTHM: regular rhythm HEART SOUNDS: S1 normal heart sound present and S2 normal heart sound present PERIPHERAL PULSES: radial pulses present Extremity: COMMON NORMALS: no pedal edema Neuro: COMMON NORMALS: patient oriented x3 and moves all extremities S ENSORIUM/ORIENTATION: Yes oriented to person, Yes oriented to place and Yes oriented to time Data 08/06/25 03:59 08/06/25 03:59 A&P Assessment and plan 1. Chest pain: 2. Hypertension: 3. Hyperlipemia, mixed: 4. Diabetes type 2, uncontrolled: Plan: Cardiac markers not elevated, stress test did not show ischemia, normal echocardiogram. No further workup recommended, follow up with cardiology in one month. PDMP PDMP Reviewed: Not Reviewed Attestations 2 Medical Necessity Statement*: ks home Coding Level of Care Code Acute Code for [facility] Fwd Diagnoses Chest pain R07.9 Hypertension I10 Hyperlipemia, mixed E78.2 Diabetes type 2, uncontrolled
--- NOTE | 2025-08-06 10:27 | PC.NURSE ---
Patient discharged to home. Instruction provided regarding follow up appointment and new medications. Patient verbalized complete understanding. New medication transmitted to [facility]. Patient left ambulatory to private vehicle. Daughter at side. patient denies pain or needs. No distress observed.
[2025-08-06 10:30] VITALS: BP 135/88; PULSE 89; RESP 18; O2SAT 96
== END 2025-08-06 10:21 | disposition home or self-care (01) | DRG 206 ==
PROVIDERS: Student in an Organized Health Care Education/Training Program; Admitting Provider Internal Medicine; PCP Family Medicine; Visit Provider Student in an Organized Health Care Education/Training Program
DX: M94.0 Chondrocostal junction syndrome [Tietze] (principal); I25.10 Atherosclerotic heart disease of native coronary artery without angina pectoris; E11.9 Type 2 diabetes mellitus without complications; M13.80 Other specified arthritis, unspecified site; E78.2 Mixed hyperlipidemia; M32.9 Systemic lupus erythematosus, unspecified; I10 Essential (primary) hypertension; Z88.6 Allergy status to analgesic agent; Z79.899 Other long term (current) drug therapy; Z79.4 Long term (current) use of insulin; Z88.0 Allergy status to penicillin; Z88.7 Allergy status to serum and vaccine; Z91.018 Allergy to other foods; Z90.710 Acquired absence of both cervix and uterus; Z87.891 Personal history of nicotine dependence
CPT/HCPCS: 36415; 71045; 78452; 80048; 80053; 80061; 82607; 83036; 83540; 83550; 83735; 84100; 84443; 84484; 85025; 93005; 93017; 93306; 96372; 96375; A9500; G0378; G0379; J1644; J2785; J7030; J9999

== ENCOUNTER → 2025-09-24 08:00 | Outpatient (BNVA) | payer MEDICAID, SELFPAY | PROVIDERS: PCP Family Medicine; Visit Provider Podiatrist Foot & Ankle Surgery | DX: E11.42 Type 2 diabetes mellitus with diabetic polyneuropathy (principal); L60.3 Nail dystrophy; E11.8 Type 2 diabetes mellitus with unspecified complications; Z79.4 Long term (current) use of insulin; M21.621 Bunionette of right foot; M21.622 Bunionette of left foot; M21.41 Flat foot [pes planus] (acquired), right foot; M21.42 Flat foot [pes planus] (acquired), left foot | CPT/HCPCS: 99213 ==

== ENCOUNTER → 2025-10-22 09:55 | Outpatient (BNVA) | payer MEDICAID, SELFPAY | PROVIDERS: PCP Family Medicine; Visit Provider Internal Medicine Endocrinology, Diabetes & Metabolism | DX: E11.649 Type 2 diabetes mellitus with hypoglycemia without coma (principal); E78.2 Mixed hyperlipidemia; E16.0 Drug-induced hypoglycemia without coma; T38.3X5A Adverse effect of insulin and oral hypoglycemic [antidiabetic] drugs, initial encounter; X58.XXXA Exposure to other specified factors, initial encounter | CPT/HCPCS: 99214 ==